=== PATIENT | female | born 1935 | race Caucasian/White ===

== ENCOUNTER 2020-01-25 13:18 | IRF | payer MEDICARE, OTHER, SELFPAY ==
[2020-01-25 13:04] VITALS: BMI 21.2
--- NOTE | 2020-01-25 13:17 | ADMGEN ---
This patient, Yani Mora, was admitted to [facility] Room 226-02. Patient/family oriented to hospital policies and general routines including ID bracelet, bed and alarms, visiting hours, pain management, procedures, bathroom and other care routines, personal items, smoking policy, room service/diet, and visiting hours. Information on how to activate the Rapid Response Team has been discussed. Patient/Family are encouraged to report perceived risks to care and to ask questions if they do not understand what they are told or what they should do.
[2020-01-25 14:00] VITALS: BP 174/68; PULSE 97; RESP 24; TEMP 36.7; O2SAT 98
[2020-01-25] MEDS: POTASSIUM CHLORIDE 10 MEQ TABLET.ER PO (17:39)
[2020-01-25] MEDS: oxyCODONE/ACETAMINOPHEN (*CRX) 5-325 MG TABLET 1 TABLET PO (20:07)
[2020-01-25 21:00] VITALS: PULSE 97; RESP 24; O2SAT 98
[2020-01-25 22:00] VITALS: BP 136/60; PULSE 97; RESP 18; TEMP 36.8; O2SAT 92
[2020-01-26] MEDS: oxyCODONE/ACETAMINOPHEN (*CRX) 5-325 MG TABLET 1 TABLET PO ×4 (02:25→20:26)
[2020-01-26 04:55] LABS: Basophils Absolute Auto 0.1 K/mm3 (0.0-0.1); Basophils Percent Auto 0.4 % (0.2-1.2); Eosinophils Absolute Auto 0.5 K/mm3 (0-0.3); Eosinophils Percent Auto 2.7 % (0-4.4); Hematocrit 31.1 % (37.0-47.0); Immature Granulocyte Absolute 0.11 K/mm3 (0.00-0.031); Immature Granulocyte Percent A 0.7 % (0-0.5); Lymphocytes Absolute Auto 4.77 K/mm3 (0.9-3.2); Mean Corpuscular HGB Conc 32.2 g/dl (32-36); Mean Corpuscular Hemoglobin 30.7 pg (26-34); Mean Corpuscular Volume 95.4 fl (80-100); Mean Platelet Volume 11.4 fl (7.4-10.4); Monocytes Absolute Auto 1.9 K/mm3 (0.1-0.6); Monocytes Percent Auto 11.4 % (2.6-8.5); Neutrophils Absolute Auto 9.2 K/mm3 (1.3-6.7); Neutrophils Percent Auto 55.8 % (45.5-73.1); Platelet Count Result 236 k/mm3 (150-375); Red Blood Count 3.26 M/mm3 (4.2-5.4); Red Cell Distribution Width 14.6 % (11.5-14.5); White Blood Count 16.4 K/mm3 (4.5-10.0)
[2020-01-26 05:10] LABS: Anion Gap 7 mmol/L (8-16); Blood Urea Nitrogen 41 mg/dL (7-17); Calcium 10.7 mg/dL (8.4-10.2); Carbon Dioxide 18 mmol/L (22-30); Chloride 115 mmol/L (98-107); Estimated Glomerular Filt Rate 29; Glucose 115 mg/dL (65-105); Potassium 4.3 mmol/L (3.4-5.0); Sodium 140 mmol/L (137-145)
[2020-01-26 06:00] VITALS: BP 153/62; PULSE 81; RESP 17; TEMP 36.3; O2SAT 100
[2020-01-26 10:18] VITALS: PULSE 81
[2020-01-26] MEDS: DOCUSATE SODIUM 100 MG CAPSULE PO (10:18)
[2020-01-26] MEDS: POTASSIUM CHLORIDE 10 MEQ TABLET.ER PO ×2 (10:18→17:11)
[2020-01-26] MEDS: METOPROLOL SUCCINATE EXT REL 25 MG TABCR PO (10:18)
[2020-01-26] MEDS: CEPHALEXIN 500 MG CAPSULE PO (10:18)
[2020-01-26 12:14] VITALS: BMI 21.2
--- NOTE | 2020-01-26 12:29 | WPDREHABHP ---
H&P: HPI History of Present Illness Date/Time: 01/26/20 12:29 Chief complaint: Pelvic fractures Narrative: Yani Mora is a 84 year old female HISTORY OF PRESENT ILLNESS: The patient's primary rehab impairment category is Orthopedic lower extremity fracture The etiologic diagnosis is mildly displaced fractures of the right superior and inferior pubic rami, and minimally displaced left superior pubic ramus fracture. I saw this patient [id number] on January 26, 2020 at 12 noon The patient is a 84 years old right-handed female with a past medical history of significant coronary artery disease status post CABG, frequent UTI, and cerebrovascular accident in 2018 presented to [facility] on January 22, 2020 after a fall in her home resulting in an injury and immobility . The patient denies hitting her head or loss of consciousness. Upon presentation, the patient was hypertensive with blood pressure of 175/106 and pulse was tachycardiac at 1:10 a.m.. Lab results were significant for WBCs 22.8, BUN 36, creatinine 1.5, calcium 10.9, and glucose 174. Right hip x-ray revealed mildly displaced fractures of the right superior and inferior pubic rami and a minimally displaced left superior pubic ramus. Head CT scan revealed no acute intracranial abnormalities with chronic microangiopathy and volume loss. Wrist x-ray revealed a healed distal radius fracture with slight impaction and angular deformity, chronic nonunion of the ulnar styloid, and significant osteoarthritis changes of the left wrist joint. Orthopedic surgery was consulted and recommended non operative management at this time. Weightbearing order to be as tolerated. Urine culture revealed gram-negative bacilli. The patient has frequent and chronic UTIs for which she will continue her home medication of Keflex. The Liao catheter was discontinued on 01/24 2020. The patient has experienced medical complications of leukocytosis, hypercalcemia, hypertension, and UTI. The patient is awake alert oriented x3 she is hemodynamically stable. Physician did not want the patient on any further DVT prophylaxis after being on Lovenox while in the hospital. The patient will follow up in [address] Simon for x-rays. COVID: patient has not traveled outside the [place] or head contact with someone was ill that has traveled outside the [place] in the past 21 days. The patient has not traveled to an area of the [place] there is experiencing known transmission of the Coronavirus and has not had close personal contact with anyone that has. The patient does not have a fever. The patient is not experiencing lower respiratory illness symptoms. Therapy was initiated at the acute care facility and the patient transferred to us from [facility] on January 25, 2020 FALLS OR SURGERIES: The patient has had [no] major surgeries in the 100 days prior to admission. the patient has had 2 falls in the past year, the patient has had 1 fall with injury in the past year. PAST MEDICAL HISTORY: Coronary artery disease, frequent UTIs, CVA in 2018, pneumonia, chronic kidney disease, and osteoarthritis PAST SURGICAL HISTORY: status post CABG times for about 6 to 7 years ago SOCIAL HISTORY: the patient lives alone in a 2 level home with 3 to 4 stairs to enter. The patient does not have a need to use the 2nd floor of her home as she has the bedroom, bathroom, and laundry on the main floor. She has a lot of family support including her granddaughter living next door. The family is available to stay with her in her home after rehab for any assistance needed. The patient was using a 2 wheeled walker for ambulation and a wheelchair for doctor's appointments prior to this fall. Patient is retired, and denies tobacco, alcohol, and illicit drug use. FAMILY HISTORY: First degree relative significant history of heart disease and hypertension. PRIOR LEVEL OF FUNCTION: Eating wa
[2020-01-26 14:00] VITALS: BP 141/97; PULSE 87; RESP 20; TEMP 36.8; O2SAT 99
--- NOTE | 2020-01-26 14:55 | RPD ---
INDIVIDUALIZED PLAN OF CARE FOR Yani Mora Brief Synthesis of Pre-Admission Screen, Post-Admission Evaluation and Therapy Evaluations: The patient presents to rehab with Mildly displaced fractures of the right superior and inferior pubic rami and Minimally displaced left superior pubic ramus fracture. Comorbidities include Coronary artery disease, frequent UTI, history of CVA (2018), chronic kidney disease, osteoarthritis, leukocytosis, hypercalcemia, and hypertension. The patient?s needs will be best met in an intensive program vs. at a lower level of care. The patient requires physician services for medical oversight, and management of post fracture complications in setting of present comorbidities, and pain management. She will be followed at least three times a week by the rehabilitation physician. Orthopedics may see the patient at the frequency of their discretion. Labs will be drawn to monitor blood counts and electrolytes periodically. The patient requires nursing services for DVT prophylactics, infection protection, medication management and education, pressure relief, and wound care. Deficits include: ADLs, Balance, Endurance, Family Training/Education, Mobility, Pain Management, ROM, Safety, Strength, and Transfers. Remote Control Mirror Installer/Case Management for: Discharge Planning and Patient/Family Counseling Physical Therapy: 5 days per week for 90 minutes. Treatments may include: Therapeutic Exercise, Gait Training, Neuromuscular Re-education, Transfer Training, Community Reintegration, Bed Mobility, Patient/Family Education, Wheelchair Mobility Group Therapy/Concurrent Therapy Rationales: -Improve attention span during functional activities in a distracted environment. -Enhance problem solving and/or adequate judgment skills during functional activities in a distracted environment. -Promote increased safety awareness in a distracted environment to reduce fall risk with functional tasks, transfers, and ambulation to allow a more safe, self-sufficient return to the home environment. -Improve dynamic balance skills to promote safety and independence with functional activities in a distracted environment for maximum gain. Occupational Therapy: 5 days per week for 90 minutes. Treatments may include: Therapeutic Exercise, Therapeutic Activity, Cognitive Training, Self-Care Transfer Training, Community Reintegration, Home Management, Patient/Family Education, Wheelchair Mobility Training, Energy Conservation Training Group Therapy/Concurrent Therapy Rationales: -Allow therapist to observe and teach generalization and carry-over of skills learned in individual therapy. -Enhance problem solving and sequencing skills during therapeutic activities in a distracted environment. -Promote increased safety awareness in a realistic setting to reduce fall risk with functional tasks due to visual and verbal distractions. -Increase functional level with ADLs, ADL transfers and use of adaptive equipment through therapeutic activities with others while promoting safety to allow a more safe, self-sufficient return home. Group Therapy/Concurrent Therapy - Rationale: -Allow therapist to observe and teach generalization and carry-over of skills learned in individual therapy. -Improve comprehension skills with complex or abstract ideas through discussion in a realistic setting. -Enhance problem solving skills with complex issues during activities in a distracted environment. -Promote increased memory skills and concentration in a distracted environment for a safe transition home. -Improve attention and focus with language/communication skills in a realistic and supportive therapeutic setting. -Allow for practice of expression of basic needs and ideas through functional activities with others. Medical Prognosis: Good Anticipated Length of Stay: 12 days Rehab Goals: Eating Goal: 06-Independent Oral Hygiene Goal: 06-Independent Toileting Hygiene Goal: 06-Independent Show
[2020-01-27] MEDS: oxyCODONE/ACETAMINOPHEN (*CRX) 5-325 MG TABLET 1 TABLET PO ×3 (02:48→21:54)
[2020-01-27 05:29] VITALS: BP 146/63; PULSE 80; RESP 20; TEMP 36.4; O2SAT 99
[2020-01-27 08:00] VITALS: PULSE 80; RESP 20; O2SAT 99
[2020-01-27 10:08] VITALS: PULSE 80
[2020-01-27] MEDS: CEPHALEXIN 500 MG CAPSULE PO (10:08)
[2020-01-27] MEDS: METOPROLOL SUCCINATE EXT REL 25 MG TABCR PO (10:08)
[2020-01-27] MEDS: DOCUSATE SODIUM 100 MG CAPSULE PO (10:08)
[2020-01-27] MEDS: POTASSIUM CHLORIDE 10 MEQ TABLET.ER PO ×2 (10:08→17:33)
--- NOTE | 2020-01-27 12:44 | WPDNEURORHBP ---
Subjective Date/time seen: 01/27/20 12:44 84 years old lady with displaced fracture of the right superior inferior pubic rami and minimally displaced left superior pubic ramus fracture in addition to the history of coronary artery disease frequent UTIs cerebrovascular accident in 2018 chronic kidney disease and osteoarthritis has been involving the physical therapy and occupational therapy and making slow but gradual improvement Review of Systems Review of Systems: All systems reviewed & are unremarkable except as noted in HPI and below Functional Status Ambulation Ability Ambulation Assistive Devices: Parallel Bars Transfers Ability Ability to Transfer In/Out of Chair: Moderate Assistance X 1 Exam Narrative: Exam Narrative: on examination she is awake alert cooperative with speech nor dysphasic no dysarthric not dysphonic the cranial examination is normal heart regular lungs clear abdomen is soft normal bowel sounds neuro unchanged Objective Data Vital Signs Vital Signs: Vital Signs - 24 hr 01/26/20 14:00 01/27/20 05:29 01/27/20 08:00 Temperature 36.8 C 36.4 C Pulse Rate 87 80 80 Respiratory Rate 20 20 20 Blood Pressure 141/97 H 146/63 H Pulse Oximetry 99 99 99 01/27/20 10:08 Temperature Pulse Rate 80 Respiratory Rate Blood Pressure Pulse Oximetry Intake/Output Intake/Output: Intake & Output 01/24/20 01/25/20 01/26/20 01/27/20 23:59 23:59 23:59 23:59 Intake Total 480 240 Balance 480 240 Meds/Results Medications: Active Medications Generic Name Dose Route Start Last Admin Trade Name Freq PRN Reason Stop Dose Admin Acetaminophen 650 mg 01/25/20 13:23 Acetaminophen 325 Mg Tablet PO Q6H PRN Pain (Scale Score 1-3) Hydrocodone Bitart/Acetaminophen 1 tab 01/25/20 13:12 Hydrocodone/Acetaminophen (*Crx) 10-325 Mg Tablet PO Q6H PRN Pain (Scale Score 4-6) Cephalexin HCl 500 mg 01/26/20 09:00 01/27/20 10:08 Cephalexin 500 Mg Capsule PO 500 mg DAILY CHELO Administration Clonidine HCl 0.1 mg 01/25/20 15:48 Clonidine Hcl 0.1 Mg Tablet PO Q6H PRN Blood Pressure - High Docusate Sodium 100 mg 01/26/20 09:00 01/27/20 10:08 Docusate Sodium 100 Mg Capsule PO 100 mg DAILY CHELO Administration Melatonin 5 mg 01/25/20 13:12 Melatonin 5 Mg Tablet PO HS PRN Insomnia Metoprolol Succinate 25 mg 01/26/20 09:00 01/27/20 10:08 Metoprolol Succinate Ext Rel 25 Mg Tabcr PO 25 mg DAILY CHELO Administration Oxycodone/Acetaminophen 1 tablet 01/25/20 13:12 01/27/20 10:43 Oxycodone/Acetaminophen (*Crx) 5-325 Mg Tablet PO 1 tablet Q4H PRN Administration Pain (Scale Score 7-10) Potassium Chloride 10 meq 01/25/20 17:00 01/27/20 10:08 Potassium Chloride 10 Meq Tablet.Er PO 10 meq BID CHELO Administration Progress Note: A&P Assessment and Plan (1) Bilateral pubic rami fractures: Code(s): S32.591A - Other specified fracture of right pubis, initial encounter for closed fracture; S32.592A - Other specified fracture of left pubis, initial encounter for closed fracture Status: Acute Additional Plan stable continue the treatment as such
[2020-01-27 14:00] VITALS: BP 171/72; PULSE 90; RESP 20; TEMP 36.7; O2SAT 97
[2020-01-27 20:35] VITALS: BP 153/68; PULSE 102; RESP 22; TEMP 36.9; O2SAT 100
[2020-01-28] MEDS: oxyCODONE/ACETAMINOPHEN (*CRX) 5-325 MG TABLET 1 TABLET PO ×3 (02:01→18:18)
[2020-01-28 04:53] VITALS: BP 150/69; PULSE 87; RESP 18; TEMP 36.1; O2SAT 98
[2020-01-28 08:55] VITALS: PULSE 84
[2020-01-28] MEDS: DOCUSATE SODIUM 100 MG CAPSULE PO (08:55)
[2020-01-28] MEDS: CEPHALEXIN 500 MG CAPSULE PO (08:55)
[2020-01-28] MEDS: METOPROLOL SUCCINATE EXT REL 25 MG TABCR PO (08:55)
[2020-01-28] MEDS: POTASSIUM CHLORIDE 10 MEQ TABLET.ER PO ×2 (08:55→17:04)
[2020-01-28 14:00] VITALS: BP 142/62; PULSE 91; RESP 16; TEMP 36.2; O2SAT 95
[2020-01-28 20:00] VITALS: PULSE 94; RESP 18; O2SAT 97
[2020-01-28] MEDS: HYDROcodone/acetaminophen (*CRX) 10-325 MG TABLET 1 TAB PO (21:24)
[2020-01-28 22:00] VITALS: BP 143/67; PULSE 94; RESP 18; TEMP 37.2; O2SAT 97
[2020-01-29] MEDS: oxyCODONE/ACETAMINOPHEN (*CRX) 5-325 MG TABLET 1 TABLET PO ×2 (05:29→11:16)
[2020-01-29 06:00] VITALS: BP 145/62; PULSE 79; RESP 15; TEMP 36.4; O2SAT 100
[2020-01-29 08:32] VITALS: PULSE 88
[2020-01-29] MEDS: METOPROLOL SUCCINATE EXT REL 25 MG TABCR PO (08:32)
[2020-01-29] MEDS: POTASSIUM CHLORIDE 10 MEQ TABLET.ER PO ×2 (08:32→17:11)
[2020-01-29] MEDS: DOCUSATE SODIUM 100 MG CAPSULE PO (08:32)
[2020-01-29] MEDS: CEPHALEXIN 500 MG CAPSULE PO (08:32)
--- NOTE | 2020-01-29 10:20 | WPDNEURORHBP ---
Subjective Date/time seen: 01/29/20 10:20 84 years old lady with displaced fracture of the right superior inferior pubic rami and minimally displaced left superior pubic ramus fracture in addition to the history of coronary artery disease chronic renal disease osteoarthritis and frequent UTIs her initial CBC has revealed WBC of 16.4 I will repeat the CBC today Functional Status Ambulation Ability Ambulation Assistive Devices: Parallel Bars Transfers Ability Ability to Transfer In/Out of Chair: Moderate Assistance X 1 Exam Narrative: Exam Narrative: on examination today she is awake alert cooperative in no obvious acute distress heart regular rate lungs clear without rhonchi or crepitation neuro unchanged Objective Data Vital Signs Vital Signs: Vital Signs - 24 hr 01/28/20 14:00 01/28/20 20:00 01/28/20 22:00 Temperature 36.2 C L 37.2 C Pulse Rate 91 94 94 Respiratory Rate 16 18 18 Blood Pressure 142/62 H 143/67 H Pulse Oximetry 95 97 97 01/29/20 06:00 01/29/20 08:32 Temperature 36.4 C Pulse Rate 79 88 Respiratory Rate 15 Blood Pressure 145/62 H Pulse Oximetry 100 Intake/Output Intake/Output: Intake & Output 01/26/20 01/27/20 01/28/20 01/29/20 23:59 23:59 23:59 23:59 Intake Total 480 720 330 240 Balance 480 720 330 240 Meds/Results Medications: Active Medications Generic Name Dose Route Start Last Admin Trade Name Freq PRN Reason Stop Dose Admin Acetaminophen 650 mg 01/25/20 13:23 Acetaminophen 325 Mg Tablet PO Q6H PRN Pain (Scale Score 1-3) Hydrocodone Bitart/Acetaminophen 1 tab 01/25/20 13:12 01/28/20 21:24 Hydrocodone/Acetaminophen (*Crx) 10-325 Mg Tablet PO 1 tab Q6H PRN Administration Pain (Scale Score 4-6) Cephalexin HCl 500 mg 01/26/20 09:00 01/29/20 08:32 Cephalexin 500 Mg Capsule PO 500 mg DAILY CHELO Administration Clonidine HCl 0.1 mg 01/25/20 15:48 Clonidine Hcl 0.1 Mg Tablet PO Q6H PRN Blood Pressure - High Docusate Sodium 100 mg 01/26/20 09:00 01/29/20 08:32 Docusate Sodium 100 Mg Capsule PO 100 mg DAILY CHELO Administration Melatonin 5 mg 01/25/20 13:12 Melatonin 5 Mg Tablet PO HS PRN Insomnia Metoprolol Succinate 25 mg 01/26/20 09:00 01/29/20 08:32 Metoprolol Succinate Ext Rel 25 Mg Tabcr PO 25 mg DAILY CHELO Administration Oxycodone/Acetaminophen 1 tablet 01/25/20 13:12 01/29/20 05:29 Oxycodone/Acetaminophen (*Crx) 5-325 Mg Tablet PO 1 tablet Q4H PRN Administration Pain (Scale Score 7-10) Potassium Chloride 10 meq 01/25/20 17:00 01/29/20 08:32 Potassium Chloride 10 Meq Tablet.Er PO 10 meq BID CHELO Administration Progress Note: A&P Assessment and Plan (1) Bilateral pubic rami fractures: Code(s): S32.591A - Other specified fracture of right pubis, initial encounter for closed fracture; S32.592A - Other specified fracture of left pubis, initial encounter for closed fracture Status: Acute Additional Plan continue the therapy as such and repeat CBC
[2020-01-29] MEDS: polyethylene glycoL 3350 17 GM POWD.PACK PO (11:21)
[2020-01-29 14:00] VITALS: BP 149/81; PULSE 100; RESP 18; TEMP 36.8; O2SAT 92
[2020-01-29 15:11] LABS: Basophils Absolute Auto 0.1 K/mm3 (0.0-0.1); Basophils Percent Auto 0.4 % (0.2-1.2); Eosinophils Absolute Auto 0.3 K/mm3 (0-0.3); Eosinophils Percent Auto 1.8 % (0-4.4); Hematocrit 35.2 % (37.0-47.0); Hemoglobin 11.1 g/dL (12.0-15.0); Immature Granulocyte Absolute 0.07 K/mm3 (0.00-0.031); Immature Granulocyte Percent A 0.4 % (0-0.5); Lymphocytes Absolute Auto 2.17 K/mm3 (0.9-3.2); Lymphocytes Percent Auto 13.8 % (18.3-44.2); Mean Corpuscular HGB Conc 31.5 g/dl (32-36); Mean Corpuscular Hemoglobin 30.7 pg (26-34); Mean Corpuscular Volume 97.5 fl (80-100); Monocytes Absolute Auto 1.5 K/mm3 (0.1-0.6); Monocytes Percent Auto 9.4 % (2.6-8.5); Neutrophils Absolute Auto 11.6 K/mm3 (1.3-6.7); Neutrophils Percent Auto 74.2 % (45.5-73.1); Platelet Count Result 337 k/mm3 (150-375); Red Blood Count 3.61 M/mm3 (4.2-5.4); Red Cell Distribution Width 14.8 % (11.5-14.5); White Blood Count 15.7 K/mm3 (4.5-10.0)
--- NOTE | 2020-01-29 15:39 | PCPTNOTE ---
Ciera Young PTA completed an inpatient rehab wheelchair evaluation on Yani Mora on 01/29/2020. The patient is unable to safely and independently ambulate household distances due to their current impairments. Their diagnosis is Pelvic fractures and their impairments include decreased strength, decreased endurance, decreased range of motion, decreased balance, lower extremity weakness. Yani's weight bearing status is weight-bearing as tolerated on the bilateral lower legs. The patient demonstrates significant functional mobility limitations that impair their ability to participate in mobility-related activities of daily living (MRADLs), including toileting, feeding, dressing, grooming, and bathing in the customary locations in the home. These limitations cannot be sufficiently resolved by the use of an appropriately fitted cane or walker. It is recommended that the patient utilize a wheelchair for functional mobility within the home in order to facilitate optimal safety, independence and participation in all MRADL's and adequately access their home environment on a regular basis. The patient's home provides adequate access between rooms, maneuvering space, and surfaces to accommodate the recommended wheelchair. The use of a wheelchair for functional mobility is strongly recommended and the patient is receptive to using the wheelchair. The use of this wheelchair will significantly improve the patient's ability to participate in MRADLS and the patient will use it on a regular basis in the home. This will facilitate optimal safety, independence, and participation. The patient has demonstrated sufficient physical and mental capabilities needed to safely propel a manual wheelchair that is provided in the home during a typical day. Recommended Wheelchair Frame: STANDARD Recommended Wheelchair Size: 16 X 16 Recommended Wheelchair Cushion: STANDARD Wheelchair Leg Recommendations: BILATERAL ELEVATING SWING AWAY LEG RESTS - Elevating legrests are recommended because the patient has significant edema of the lower extremities that requires an elevating legrest. - Anti-tippers are recommended due to patient demonstrating increased risk for falls. They would benefit from anti-tippers with added safety and stabilization. Ciera Young PTA 01/29/2020 Evaluating Therapist Date I agree with and certify that the above recommendation is medically necessary. Referring Physician Date I agree with and certify that the above recommendation is medically necessary. Referring Physician Date
--- NOTE | 2020-01-29 17:50 | PC.NURSE ---
Urine sensitivity obtained from [facility], final -growth of ESBL. Called and left message for him to return call, also left copy on his desk
[2020-01-29 20:42] VITALS: BP 150/60; PULSE 103; RESP 12; TEMP 36.8; O2SAT 97
[2020-01-30] MEDS: oxyCODONE/ACETAMINOPHEN (*CRX) 5-325 MG TABLET 1 TABLET PO (02:22)
[2020-01-30 05:55] VITALS: BP 159/69; PULSE 89; RESP 14; TEMP 36.6; O2SAT 97
[2020-01-30 09:38] VITALS: PULSE 89
[2020-01-30] MEDS: DOCUSATE SODIUM 100 MG CAPSULE PO (09:38)
[2020-01-30] MEDS: HYDROcodone/acetaminophen (*CRX) 10-325 MG TABLET 1 TAB PO ×2 (09:38→18:28)
[2020-01-30] MEDS: METOPROLOL SUCCINATE EXT REL 25 MG TABCR PO (09:38)
[2020-01-30] MEDS: CEPHALEXIN 500 MG CAPSULE PO (09:38)
[2020-01-30] MEDS: POTASSIUM CHLORIDE 10 MEQ TABLET.ER PO ×2 (09:38→17:20)
--- NOTE | 2020-01-30 11:21 | WPDNEURORHBP ---
Subjective Date/time seen: 01/30/20 11:21 84 years old lady with displaced fracture of the right superior inferior pubic rami and minimally displaced left superior pubic ramus fracture and also history of coronary artery disease, chronic renal disease, osteoarthritis, and frequent UTIs has been involved the physical therapy and occupational therapy on actively basis her WBC was 15.7 hemoglobin 11.1 electrolytes borderline will repeat the CBC and BMP Review of Systems Review of Systems: All systems reviewed & are unremarkable except as noted in HPI and below Functional Status Ambulation Ability Ambulation Assistive Devices: Parallel Bars Transfers Ability Ability to Transfer In/Out of Chair: Moderate Assistance X 1 Exam Narrative: Exam Narrative: on exam she is awake alert cooperative his speech nor dysphasic no dysarthric no dysphonic neck is supple mucous membranes are moist with no rhinorrhea heart regular with no murmur lungs clear to auscultation no rhonchi or crepitation abdomen is soft nontender normal bowel sounds and neurological examination unchanged Objective Data Vital Signs Vital Signs: Vital Signs - 24 hr 01/29/20 14:00 01/29/20 20:42 01/30/20 05:55 Temperature 36.8 C 36.8 C 36.6 C Pulse Rate 100 103 H 89 Respiratory Rate 18 12 14 Blood Pressure 149/81 H 150/60 H 159/69 H Pulse Oximetry 92 97 97 01/30/20 09:38 Temperature Pulse Rate 89 Respiratory Rate Blood Pressure Pulse Oximetry Intake/Output Intake/Output: Intake & Output 01/27/20 01/28/20 01/29/20 01/30/20 23:59 23:59 23:59 23:59 Intake Total 720 330 600 240 Balance 720 330 600 240 Meds/Results Medications: Active Medications Generic Name Dose Route Start Last Admin Trade Name Freq PRN Reason Stop Dose Admin Acetaminophen 650 mg 01/25/20 13:23 Acetaminophen 325 Mg Tablet PO Q6H PRN Pain (Scale Score 1-3) Hydrocodone Bitart/Acetaminophen 1 tab 01/30/20 09:20 01/30/20 09:38 Hydrocodone/Acetaminophen (*Crx) 10-325 Mg Tablet PO 1 tab Q12HRT CHELO Administration Cephalexin HCl 500 mg 01/26/20 09:00 01/30/20 09:38 Cephalexin 500 Mg Capsule PO 500 mg DAILY CHELO Administration Clonidine HCl 0.1 mg 01/25/20 15:48 Clonidine Hcl 0.1 Mg Tablet PO Q6H PRN Blood Pressure - High Docusate Sodium 100 mg 01/26/20 09:00 01/30/20 09:38 Docusate Sodium 100 Mg Capsule PO 100 mg DAILY CHELO Administration Melatonin 5 mg 01/25/20 13:12 Melatonin 5 Mg Tablet PO HS PRN Insomnia Metoprolol Succinate 25 mg 01/26/20 09:00 01/30/20 09:38 Metoprolol Succinate Ext Rel 25 Mg Tabcr PO 25 mg DAILY CHELO Administration Oxycodone/Acetaminophen 1 tablet 01/25/20 13:12 01/30/20 02:22 Oxycodone/Acetaminophen (*Crx) 5-325 Mg Tablet PO 1 tablet Q4H PRN Administration Pain (Scale Score 7-10) Polyethylene Glycol 17 gm 01/29/20 11:02 01/29/20 11:21 Polyethylene Glycol 3350 17 Gm Powd.Pack PO 17 gm DAILY PRN Administration Constipation Potassium Chloride 10 meq 01/25/20 17:00 01/30/20 09:38 Potassium Chloride 10 Meq Tablet.Er PO 10 meq BID CHELO Administration Labs Labs: Laboratory Results - last 24 hr 01/29/20 15:05 WBC 15.7 H RBC 3.61 L Hgb 11.1 L Hct 35.2 L MCV 97.5 MCH 30.7 MCHC 31.5 L RDW 14.8 H Plt Count 337 MPV 11.0 H Immature Gran % (Auto) 0.4 Neut % (Auto) 74.2 H Lymph % (Auto) 13.8 L Grady % (Auto) 9.4 H Eos % (Auto) 1.8 Baso % (Auto) 0.4 Lymph # (Auto) 2.17 Grady # (Auto) 1.5 H Eos # (Auto) 0.3 Baso # (Auto) 0.1 Abs Immat Gran (auto) 0.07 H Absolute Neuts (auto) 11.6 H Absolute Nucleated RBC 0.0 Nucleated RBC % 0.0 Progress Note: A&P Assessment and Plan (1) Bilateral pubic rami fractures: Code(s): S32.591A - Other specified fracture of right pubis, initial encounter for closed fracture; S32.592A - Other specified fracture of left pubis, initial encounter for closed
[2020-01-30 12:39] LABS: Basophils Absolute Auto 0.1 K/mm3 (0.0-0.1); Basophils Percent Auto 0.4 % (0.2-1.2); Eosinophils Absolute Auto 0.3 K/mm3 (0-0.3); Eosinophils Percent Auto 2.1 % (0-4.4); Hematocrit 33.6 % (37.0-47.0); Hemoglobin 10.7 g/dL (12.0-15.0); Immature Granulocyte Absolute 0.08 K/mm3 (0.00-0.031); Immature Granulocyte Percent A 0.5 % (0-0.5); Lymphocytes Absolute Auto 3.24 K/mm3 (0.9-3.2); Lymphocytes Percent Auto 20.6 % (18.3-44.2); Mean Corpuscular HGB Conc 31.8 g/dl (32-36); Mean Corpuscular Hemoglobin 31.1 pg (26-34); Mean Corpuscular Volume 97.7 fl (80-100); Mean Platelet Volume 11.2 fl (7.4-10.4); Monocytes Absolute Auto 1.3 K/mm3 (0.1-0.6); Monocytes Percent Auto 8.5 % (2.6-8.5); Neutrophils Absolute Auto 10.7 K/mm3 (1.3-6.7); Neutrophils Percent Auto 67.9 % (45.5-73.1); Platelet Count Result 356 k/mm3 (150-375); Red Blood Count 3.44 M/mm3 (4.2-5.4); Red Cell Distribution Width 14.8 % (11.5-14.5); White Blood Count 15.7 K/mm3 (4.5-10.0)
[2020-01-30 12:52] LABS: Anion Gap 12 mmol/L (8-16); Blood Urea Nitrogen 50 mg/dL (7-17); Calcium 10.2 mg/dL (8.4-10.2); Carbon Dioxide 14 mmol/L (22-30); Chloride 116 mmol/L (98-107); Estimated Glomerular Filt Rate 27; Glucose 146 mg/dL (65-105); Potassium 3.8 mmol/L (3.4-5.0); Sodium 142 mmol/L (137-145)
[2020-01-30 14:00] VITALS: BP 150/76; PULSE 90; RESP 18; TEMP 36.6; O2SAT 100
[2020-01-30 22:00] VITALS: BP 156/55; PULSE 95; RESP 20; TEMP 37.1; O2SAT 99
[2020-01-30] MEDS: ACETAMINOPHEN 325 MG TABLET 650 MG PO (22:38)
[2020-01-31] MEDS: oxyCODONE/ACETAMINOPHEN (*CRX) 5-325 MG TABLET 1 TABLET PO ×2 (02:40→13:14)
[2020-01-31 06:00] VITALS: BP 151/71; PULSE 83; RESP 20; TEMP 36.3; O2SAT 98
[2020-01-31] MEDS: HYDROcodone/acetaminophen (*CRX) 10-325 MG TABLET 1 TAB PO ×2 (06:27→17:32)
[2020-01-31 08:34] VITALS: PULSE 83
[2020-01-31] MEDS: DOCUSATE SODIUM 100 MG CAPSULE PO (08:34)
[2020-01-31] MEDS: POTASSIUM CHLORIDE 10 MEQ TABLET.ER PO ×2 (08:34→17:32)
[2020-01-31] MEDS: METOPROLOL SUCCINATE EXT REL 25 MG TABCR PO (08:34)
[2020-01-31] MEDS: CEPHALEXIN 500 MG CAPSULE PO (08:35)
--- NOTE | 2020-01-31 12:01 | PCDIET ---
Nutrition Follow-Up Complete: Nutrition Diagnosis: Suboptimal oral intake related to decreased appetite as evidenced by patient statements, meal intake of 5%. Nutrition Goal: Patient to consume 75% of meals and/or supplements or greater Goal in progress. Patient reports appetite remains poor, but is consistently taking Ensure Clear TID for total of 720kcal and 24g protein. Did not care for vanilla flavor of Frozen Nutritional Treat (sent 1x daily for 300kcal and 9g protein) but is willing to try chocolate. Small, frequent meals encouraged. Last recorded weight is 47.7 kg. Recommend obtaining new weight. Bowel Motility: Last documented BM on 01/28/20. Patient on Colace and Miralax. Labs Reviewed: Hgb (10.7), Hct (33.6), Glu (146), BUN (50), Cr (1.8), Cl (116) Meds Noted: [place], Keflex, Colace, Miralax, KCl Additional Notes: No documented skin breakdown. Will continue to monitor with same goal. Nutrition Monitoring and Evaluation: Follow up in 5 days.
--- NOTE | 2020-01-31 12:13 | WPDNEURORHBP ---
Subjective Date/time seen: 01/31/20 12:13 84 years old lady admitted to the rehab floor with displaced fracture of the right superior inferior pubic rami and minimally displaced left superior pubic ramus fracture in addition to the history of multiple comorbid conditions she is involved in the physical therapy and occupational therapy and has been stable and has no obvious specific complaints today Review of Systems Review of Systems: All systems reviewed & are unremarkable except as noted in HPI and below Functional Status Ambulation Ability Ambulation Assistive Devices: Parallel Bars Transfers Ability Ability to Transfer In/Out of Chair: Moderate Assistance X 1 Exam Narrative: Exam Narrative: she is awake alert cooperative, speech not dysphasic not dysarthric ,neck supple, heart regular, lungs clear with no crepitations or rhonchi, abdomen soft nontender , skin clear, neuro unchanged Objective Data Vital Signs Vital Signs: Vital Signs - 24 hr 01/30/20 14:00 01/30/20 22:00 01/31/20 06:00 Temperature 36.6 C 37.1 C 36.3 C L Pulse Rate 90 95 83 Respiratory Rate 18 20 20 Blood Pressure 150/76 H 156/55 H 151/71 H Pulse Oximetry 100 99 98 01/31/20 08:34 Temperature Pulse Rate 83 Respiratory Rate Blood Pressure Pulse Oximetry Intake/Output Intake/Output: Intake & Output 01/28/20 01/29/20 01/30/20 01/31/20 23:59 23:59 23:59 23:59 Intake Total 330 600 600 240 Balance 330 600 600 240 Meds/Results Medications: Active Medications Generic Name Dose Route Start Last Admin Trade Name Freq PRN Reason Stop Dose Admin Acetaminophen 650 mg 01/25/20 13:23 01/30/20 22:38 Acetaminophen 325 Mg Tablet PO 650 mg Q6H PRN Administration Pain (Scale Score 1-3) Hydrocodone Bitart/Acetaminophen 1 tab 01/30/20 18:00 01/31/20 06:27 Hydrocodone/Acetaminophen (*Crx) 10-325 Mg Tablet PO 1 tab Q12H CHELO Administration Cephalexin HCl 500 mg 01/26/20 09:00 01/31/20 08:35 Cephalexin 500 Mg Capsule PO 500 mg DAILY CHELO Administration Clonidine HCl 0.1 mg 01/25/20 15:48 Clonidine Hcl 0.1 Mg Tablet PO Q6H PRN Blood Pressure - High Docusate Sodium 100 mg 01/26/20 09:00 01/31/20 08:34 Docusate Sodium 100 Mg Capsule PO 100 mg DAILY CHELO Administration Melatonin 5 mg 01/25/20 13:12 Melatonin 5 Mg Tablet PO HS PRN Insomnia Metoprolol Succinate 25 mg 01/26/20 09:00 01/31/20 08:34 Metoprolol Succinate Ext Rel 25 Mg Tabcr PO 25 mg DAILY CHELO Administration Oxycodone/Acetaminophen 1 tablet 01/25/20 13:12 01/31/20 02:40 Oxycodone/Acetaminophen (*Crx) 5-325 Mg Tablet PO 1 tablet Q4H PRN Administration Pain (Scale Score 7-10) Polyethylene Glycol 17 gm 01/29/20 11:02 01/29/20 11:21 Polyethylene Glycol 3350 17 Gm Powd.Pack PO 17 gm DAILY PRN Administration Constipation Potassium Chloride 10 meq 01/25/20 17:00 01/31/20 08:34 Potassium Chloride 10 Meq Tablet.Er PO 10 meq BID CHELO Administration Labs Labs: Laboratory Results - last 24 hr 01/30/20 01/30/20 12:23 12:23 WBC 15.7 H RBC 3.44 L Hgb 10.7 L Hct 33.6 L MCV 97.7 MCH 31.1 MCHC 31.8 L RDW 14.8 H Plt Count 356 MPV 11.2 H Immature Gran % (Auto) 0.5 Neut % (Auto) 67.9 Lymph % (Auto) 20.6 [place] % (Auto) 8.5 Eos % (Auto) 2.1 Baso % (Auto) 0.4 Lymph # (Auto) 3.24 H [place] # (Auto) 1.3 H Eos # (Auto) 0.3 Baso # (Auto) 0.1 Abs Immat Gran (auto) 0.08 H Absolute Neuts (auto) 10.7 H Absolute Nucleated RBC 0.0 Nucleated RBC % 0.0 Sodium 142 Potassium 3.8 Chloride 116 H Carbon Dioxide 14 L Anion Gap 12 BUN 50 H Creatinine 1.80 H Estim Creat Clear Calc Not Reportable Estimated GFR 27 L Glucose 146 H Calcium 10.2 Progress Note: A&P Assessment and Plan (1) Bilateral pubic rami fractures: Code(s): S32.591A - Other specified fracture of right pubis, initial en
[2020-01-31 14:00] VITALS: BP 161/68; PULSE 88; RESP 16; TEMP 36.6; O2SAT 94
--- NOTE | 2020-01-31 14:48 | PC.NURSE ---
nursing staff called this internal communications writer to room. pt oxygen saturation was noted at 64%. aide tried to get a reading on a different digit and was noted at 77% RA. Pt placed on oxygen at 3L per nasal cannula and SPO2 noted to be 94%. Dr Mcfadden updated and wanted oxygen to continue as needed. will continue to monitor.
[2020-01-31 20:15] VITALS: O2SAT 99
[2020-01-31 22:00] VITALS: BP 152/61; PULSE 89; RESP 19; TEMP 36.4; O2SAT 99
[2020-02-01] MEDS: oxyCODONE/ACETAMINOPHEN (*CRX) 5-325 MG TABLET 1 TABLET PO (00:47)
[2020-02-01] MEDS: HYDROcodone/acetaminophen (*CRX) 10-325 MG TABLET 1 TAB PO ×2 (05:59→18:04)
[2020-02-01 06:00] VITALS: BP 157/78; PULSE 82; RESP 17; TEMP 36.4; O2SAT 100
[2020-02-01 08:00] VITALS: PULSE 82; RESP 17; O2SAT 100
[2020-02-01 08:44] VITALS: PULSE 82
[2020-02-01] MEDS: METOPROLOL SUCCINATE EXT REL 25 MG TABCR PO (08:44)
[2020-02-01] MEDS: DOCUSATE SODIUM 100 MG CAPSULE PO (08:44)
[2020-02-01] MEDS: CEPHALEXIN 500 MG CAPSULE PO (08:44)
[2020-02-01] MEDS: POTASSIUM CHLORIDE 10 MEQ TABLET.ER PO ×2 (08:44→18:04)
[2020-02-01 14:00] VITALS: BP 158/54; PULSE 96; RESP 20; TEMP 36.8; O2SAT 100
[2020-02-01] MEDS: ACETAMINOPHEN 325 MG TABLET 650 MG PO (23:21)
[2020-02-02 04:54] LABS: Basophils Absolute Auto 0.1 K/mm3 (0.0-0.1); Basophils Percent Auto 0.5 % (0.2-1.2); Eosinophils Absolute Auto 0.6 K/mm3 (0-0.3); Eosinophils Percent Auto 4.2 % (0-4.4); Hemoglobin 10.2 g/dL (12.0-15.0); Immature Granulocyte Absolute 0.07 K/mm3 (0.00-0.031); Immature Granulocyte Percent A 0.5 % (0-0.5); Lymphocytes Absolute Auto 4.33 K/mm3 (0.9-3.2); Lymphocytes Percent Auto 29.6 % (18.3-44.2); Mean Corpuscular HGB Conc 31.9 g/dl (32-36); Mean Corpuscular Hemoglobin 30.7 pg (26-34); Mean Corpuscular Volume 96.4 fl (80-100); Mean Platelet Volume 11.1 fl (7.4-10.4); Monocytes Absolute Auto 1.2 K/mm3 (0.1-0.6); Monocytes Percent Auto 8.3 % (2.6-8.5); Neutrophils Absolute Auto 8.3 K/mm3 (1.3-6.7); Neutrophils Percent Auto 56.9 % (45.5-73.1); Platelet Count Result 401 k/mm3 (150-375); Red Blood Count 3.32 M/mm3 (4.2-5.4); Red Cell Distribution Width 14.6 % (11.5-14.5); White Blood Count 14.6 K/mm3 (4.5-10.0)
[2020-02-02 05:10] LABS: Anion Gap 12 mmol/L (8-16); Blood Urea Nitrogen 54 mg/dL (7-17); Calcium 9.7 mg/dL (8.4-10.2); Carbon Dioxide 14 mmol/L (22-30); Chloride 117 mmol/L (98-107); Estimated Glomerular Filt Rate 24; Glucose 112 mg/dL (65-105); Potassium 4.3 mmol/L (3.4-5.0); Sodium 143 mmol/L (137-145)
[2020-02-02] MEDS: HYDROcodone/acetaminophen (*CRX) 10-325 MG TABLET 1 TAB PO ×2 (05:14→17:57)
[2020-02-02 05:56] VITALS: BP 165/72; PULSE 85; RESP 20; TEMP 36.1; O2SAT 98
[2020-02-02 07:12] VITALS: BP 165/72; PULSE 85; RESP 20; TEMP 36.1; O2SAT 98
[2020-02-02 09:46] VITALS: PULSE 85
[2020-02-02] MEDS: CEPHALEXIN 500 MG CAPSULE PO (09:46)
[2020-02-02] MEDS: METOPROLOL SUCCINATE EXT REL 25 MG TABCR PO (09:46)
[2020-02-02] MEDS: DOCUSATE SODIUM 100 MG CAPSULE PO (09:46)
[2020-02-02] MEDS: POTASSIUM CHLORIDE 10 MEQ TABLET.ER PO ×2 (09:46→17:57)
--- NOTE | 2020-02-02 10:34 | WPDNEURORHBP ---
Subjective Date/time seen: 02/02/20 10:34 84 years old lady admitted to the rehab floor with diagnosis of displaced fracture of the right superior inferior pubic rami with minimal displacement continues to be involvement in the physical therapy and occupational therapy. Generally she is very less communicative but has very appropriate emotional and expressive responses. Review of Systems Review of Systems: All systems reviewed & are unremarkable except as noted in HPI and below Functional Status Ambulation Ability Ambulation Assistive Devices: Parallel Bars Transfers Ability Ability to Transfer In/Out of Chair: Moderate Assistance X 1 Exam Narrative: Exam Narrative: On examination she is awake alert cooperative his speech is not dysphasic or dysarthric. Heart regular with no murmur. Lungs clear with no rhonchi or crepitations. Abdomen is soft nontender flap Alina. Neurologically she is awake alert follows instruction responds appropriately generally looks deconditioned and weak reflexes symmetrical and plantar responses are downgoing. Objective Data Vital Signs Vital Signs: Vital Signs - 24 hr 02/01/20 14:00 02/02/20 05:56 02/02/20 07:12 Temperature 36.8 C 36.1 C L 36.1 C L Pulse Rate 96 85 85 Respiratory Rate 20 20 20 Blood Pressure 158/54 H 165/72 H 165/72 H Pulse Oximetry 100 98 98 02/02/20 09:46 Temperature Pulse Rate 85 Respiratory Rate Blood Pressure Pulse Oximetry Intake/Output Intake/Output: Intake & Output 01/30/20 01/31/20 02/01/20 02/02/20 23:59 23:59 23:59 23:59 Intake Total 600 720 720 100 Balance 600 720 720 100 Meds/Results Medications: Active Medications Generic Name Dose Route Start Last Admin Trade Name Freq PRN Reason Stop Dose Admin Acetaminophen 650 mg 01/25/20 13:23 02/01/20 23:21 Acetaminophen 325 Mg Tablet PO 650 mg Q6H PRN Administration Pain (Scale Score 1-3) Hydrocodone Bitart/Acetaminophen 1 tab 01/30/20 18:00 02/02/20 05:14 Hydrocodone/Acetaminophen (*Crx) 10-325 Mg Tablet PO 1 tab Q12H CHELO Administration Cephalexin HCl 500 mg 01/26/20 09:00 02/02/20 09:46 Cephalexin 500 Mg Capsule PO 500 mg DAILY CHELO Administration Clonidine HCl 0.1 mg 01/25/20 15:48 Clonidine Hcl 0.1 Mg Tablet PO Q6H PRN Blood Pressure - High Docusate Sodium 100 mg 01/26/20 09:00 02/02/20 09:46 Docusate Sodium 100 Mg Capsule PO 100 mg DAILY CHELO Administration Melatonin 5 mg 01/25/20 13:12 Melatonin 5 Mg Tablet PO HS PRN Insomnia Metoprolol Succinate 25 mg 01/26/20 09:00 02/02/20 09:46 Metoprolol Succinate Ext Rel 25 Mg Tabcr PO 25 mg DAILY CHELO Administration Oxycodone/Acetaminophen 1 tablet 01/25/20 13:12 02/01/20 00:47 Oxycodone/Acetaminophen (*Crx) 5-325 Mg Tablet PO 1 tablet Q4H PRN Administration Pain (Scale Score 7-10) Polyethylene Glycol 17 gm 01/29/20 11:02 01/29/20 11:21 Polyethylene Glycol 3350 17 Gm Powd.Pack PO 17 gm DAILY PRN Administration Constipation Potassium Chloride 10 meq 01/25/20 17:00 02/02/20 09:46 Potassium Chloride 10 Meq Tablet.Er PO 10 meq BID CHELO Administration Labs Labs: Laboratory Results - last 24 hr 02/02/20 02/02/20 04:33 04:33 WBC 14.6 H RBC 3.32 L Hgb 10.2 L Hct 32.0 L MCV 96.4 MCH 30.7 MCHC 31.9 L RDW 14.6 H Plt Count 401 H MPV 11.1 H Immature Gran % (Auto) 0.5 Neut % (Auto) 56.9 Lymph % (Auto) 29.6 [place] % (Auto) 8.3 Eos % (Auto) 4.2 Baso % (Auto) 0.5 Lymph # (Auto) 4.33 H [place] # (Auto) 1.2 H Eos # (Auto) 0.6 H Baso # (Auto) 0.1 Abs Immat Gran (auto) 0.07 H Absolute Neuts (auto) 8.3 H Absolute Nucleated RBC 0.0 Nucleated RBC % 0.0 Sodium 143 Potassium 4.3 Chloride 117 H Carbon Dioxide 14 L Anion Gap 12 BUN 54 H Creatinine 2.00 H Estim Creat Clear Calc Not Reportable Estimated GFR 24 L Glucose 112 H Calcium 9.7
[2020-02-02 14:00] VITALS: BP 153/66; PULSE 86; RESP 18; TEMP 36.3; O2SAT 100
--- NOTE | 2020-02-02 17:30 | PC.NURSE ---
Desaturation noted this afternoon when doing scheduled vitals of 77%, patient did not appear in any distress, O2 applied per nasal canula at 2L.
[2020-02-02 20:20] VITALS: PULSE 87; RESP 16; O2SAT 100
[2020-02-02 22:00] VITALS: BP 147/67; PULSE 87; RESP 16; TEMP 36.7; O2SAT 100
[2020-02-02] MEDS: oxyCODONE/ACETAMINOPHEN (*CRX) 5-325 MG TABLET 1 TABLET PO (22:52)
[2020-02-03] MEDS: HYDROcodone/acetaminophen (*CRX) 10-325 MG TABLET 1 TAB PO ×2 (05:05→17:51)
[2020-02-03 06:00] VITALS: BP 139/67; PULSE 92; RESP 18; TEMP 36.2; O2SAT 99
[2020-02-03 10:30] VITALS: PULSE 92
[2020-02-03] MEDS: CEPHALEXIN 500 MG CAPSULE PO (10:30)
[2020-02-03] MEDS: DOCUSATE SODIUM 100 MG CAPSULE PO (10:30)
[2020-02-03] MEDS: METOPROLOL SUCCINATE EXT REL 25 MG TABCR PO (10:30)
[2020-02-03] MEDS: POTASSIUM CHLORIDE 10 MEQ TABLET.ER PO ×2 (10:32→17:51)
[2020-02-03 14:00] VITALS: BP 140/67; PULSE 80; RESP 16; TEMP 36.3; O2SAT 100
[2020-02-03] MEDS: oxyCODONE/ACETAMINOPHEN (*CRX) 5-325 MG TABLET 1 TABLET PO ×2 (14:39→21:41)
[2020-02-03 22:00] VITALS: BP 145/65; PULSE 88; RESP 20; TEMP 36.8; O2SAT 97
[2020-02-04] MEDS: oxyCODONE/ACETAMINOPHEN (*CRX) 5-325 MG TABLET 1 TABLET PO ×3 (02:50→22:25)
[2020-02-04] MEDS: HYDROcodone/acetaminophen (*CRX) 10-325 MG TABLET 1 TAB PO ×2 (05:53→18:23)
[2020-02-04 06:00] VITALS: BP 155/75; PULSE 92; RESP 18; TEMP 36.6; O2SAT 100
[2020-02-04] MEDS: DOCUSATE SODIUM 100 MG CAPSULE PO (09:22)
[2020-02-04] MEDS: CEPHALEXIN 500 MG CAPSULE PO (09:22)
[2020-02-04 09:23] VITALS: PULSE 92
[2020-02-04] MEDS: POTASSIUM CHLORIDE 10 MEQ TABLET.ER PO ×2 (09:23→17:30)
[2020-02-04] MEDS: METOPROLOL SUCCINATE EXT REL 25 MG TABCR PO (09:23)
[2020-02-04] MEDS: TOLNAFTATE 1% POWDER 45 GM BTL 1 APPLIC TOPICAL ×2 (09:23→20:15)
[2020-02-04 11:00] VITALS: O2SAT 83
[2020-02-04 14:00] VITALS: BP 150/65; PULSE 88; RESP 20; TEMP 36.4; O2SAT 100
[2020-02-04 22:00] VITALS: BP 147/58; PULSE 86; RESP 20; TEMP 36.6; O2SAT 99
[2020-02-05] MEDS: oxyCODONE/ACETAMINOPHEN (*CRX) 5-325 MG TABLET 1 TABLET PO ×3 (01:53→22:37)
[2020-02-05] MEDS: HYDROcodone/acetaminophen (*CRX) 10-325 MG TABLET 1 TAB PO ×2 (05:36→17:06)
[2020-02-05 06:00] VITALS: BP 149/61; PULSE 90; RESP 18; TEMP 36.4; O2SAT 100
[2020-02-05 08:38] VITALS: PULSE 90
[2020-02-05] MEDS: CEPHALEXIN 500 MG CAPSULE PO (08:38)
[2020-02-05] MEDS: METOPROLOL SUCCINATE EXT REL 25 MG TABCR PO (08:38)
[2020-02-05] MEDS: POTASSIUM CHLORIDE 10 MEQ TABLET.ER PO ×2 (08:38→17:06)
[2020-02-05] MEDS: DOCUSATE SODIUM 100 MG CAPSULE PO (08:38)
[2020-02-05] MEDS: TOLNAFTATE 1% POWDER 45 GM BTL 1 APPLIC TOPICAL ×2 (09:40→20:53)
--- NOTE | 2020-02-05 09:48 | WPDNEURORHBP ---
Subjective Date/time seen: 02/05/20 09:48 84 years old with diagnosis of displaced fracture of the right superior inferior pubic rami and minimal displacement has been involved in the physical therapy and occupational therapy has no acute problems but generally she has not communicative but follows all the instruction accordingly and able to express herself without any problem Review of Systems Review of Systems: All systems reviewed & are unremarkable except as noted in HPI and below Functional Status Ambulation Ability Ambulation Assistive Devices: Walker, Wheeled Transfers Ability Ability to Transfer In/Out of Chair: Moderate Assistance X 1 Exam Narrative: Exam Narrative: on examination she is awake alert cooperative his speech is slow of low volume but no dysphasic not dysarthric neck is supple regular lungs clear neuro unchanged Objective Data Vital Signs Vital Signs: Vital Signs - 24 hr 02/04/20 11:00 02/04/20 14:00 02/04/20 22:00 Temperature 36.4 C L 36.6 C Pulse Rate 88 86 Respiratory Rate 20 20 Blood Pressure 150/65 H 147/58 H Pulse Oximetry 83 L 100 99 02/05/20 06:00 02/05/20 08:38 Temperature 36.4 C Pulse Rate 90 90 Respiratory Rate 18 Blood Pressure 149/61 H Pulse Oximetry 100 Intake/Output Intake/Output: Intake & Output 02/02/20 02/03/20 02/04/20 02/05/20 23:59 23:59 23:59 23:59 Intake Total 200 960 780 240 Balance 200 960 780 240 Meds/Results Medications: Active Medications Generic Name Dose Route Start Last Admin Trade Name Freq PRN Reason Stop Dose Admin Acetaminophen 650 mg 01/25/20 13:23 02/01/20 23:21 Acetaminophen 325 Mg Tablet PO 650 mg Q6H PRN Administration Pain (Scale Score 1-3) Hydrocodone Bitart/Acetaminophen 1 tab 01/30/20 18:00 02/05/20 05:36 Hydrocodone/Acetaminophen (*Crx) 10-325 Mg Tablet PO 1 tab Q12H CHELO Administration Cephalexin HCl 500 mg 01/26/20 09:00 02/05/20 08:38 Cephalexin 500 Mg Capsule PO 03/06/20 09:01 500 mg DAILY CHELO Administration Clonidine HCl 0.1 mg 01/25/20 15:48 Clonidine Hcl 0.1 Mg Tablet PO Q6H PRN Blood Pressure - High Docusate Sodium 100 mg 01/26/20 09:00 02/05/20 08:38 Docusate Sodium 100 Mg Capsule PO 100 mg DAILY CHELO Administration Melatonin 5 mg 01/25/20 13:12 Melatonin 5 Mg Tablet PO HS PRN Insomnia Metoprolol Succinate 25 mg 01/26/20 09:00 02/05/20 08:38 Metoprolol Succinate Ext Rel 25 Mg Tabcr PO 25 mg DAILY CHELO Administration Oxycodone/Acetaminophen 1 tablet 01/25/20 13:12 02/05/20 01:53 Oxycodone/Acetaminophen (*Crx) 5-325 Mg Tablet PO 1 tablet Q4H PRN Administration Pain (Scale Score 7-10) Polyethylene Glycol 17 gm 01/29/20 11:02 01/29/20 11:21 Polyethylene Glycol 3350 17 Gm Powd.Pack PO 17 gm DAILY PRN Administration Constipation Potassium Chloride 10 meq 01/25/20 17:00 02/05/20 08:38 Potassium Chloride 10 Meq Tablet.Er PO 10 meq BID CHELO Administration Tolnaftate 1 applic 02/04/20 09:00 02/05/20 09:40 Tolnaftate 1% Powder 45 Gm Btl TOPICAL 1 applic Q12HR CHELO Administration Progress Note: A&P Assessment and Plan (1) Bilateral pubic rami fractures: Code(s): S32.591A - Other specified fracture of right pubis, initial encounter for closed fracture; S32.592A - Other specified fracture of left pubis, initial encounter for closed fracture Status: Acute Additional Plan stable will continue the treatment as such
--- NOTE | 2020-02-05 12:42 | PCDIET ---
Nutrition Follow-Up Complete: Nutrition Diagnosis: Suboptimal oral intake related to decreased appetite as evidenced by patient statements, meal intake of 5%. Nutrition Goal: Patient to consume 75% of meals and/or supplements or greater Goal not met. Patient continues to consume less than 50% of most meals, but continues to take Ensure Clear TID. Recommend continuing regular diet with Ensure Clear TID. If medically appropriate, patient may also benefit from appetite stimulant. Last recorded weight is 47.7 kg. Recommend obtaining new weight. Bowel Motility: Last BM on 02/02/20, per nursing flowsheet. Labs Reviewed: Hgb (10.2), Hct (32.0), Glu (112), BUN (54), Cr (2.0), Cl (117) Meds Noted: [place], Keflex, Colace, Toprol XL, KCl Additional Notes: Left hand skin tear documented. Will continue to monitor with same goal. Nutrition Monitoring and Evaluation: Follow up in 5 days.
[2020-02-05 14:00] VITALS: BP 103/87; PULSE 80; RESP 16; TEMP 36.9; O2SAT 93
[2020-02-05 22:00] VITALS: BP 145/66; PULSE 96; RESP 18; TEMP 37.3; O2SAT 95
[2020-02-06] MEDS: HYDROcodone/acetaminophen (*CRX) 10-325 MG TABLET 1 TAB PO ×2 (05:49→18:47)
[2020-02-06 06:00] VITALS: BP 144/62; PULSE 74; RESP 18; TEMP 36.7; O2SAT 92
--- NOTE | 2020-02-06 09:28 | WPDNEURORHBP ---
Subjective Date/time seen: 02/06/20 09:28 84 years old lady with diagnosis of displaced fracture of the right superior inferior pubic rami with minimal displacement has been involved in physical therapy and occupational therapy case was discussed with the family the meeting she is walking only 2 steps with of old walker easy fatigue. She is able to push the wheelchair for 50ft on discharge on February 07, 2020 she will require the home health physical therapy occupational therapy he continues to be incontinence of bowel and bladder and also receiving Keflex for the chronic UTI Review of Systems Review of Systems: All systems reviewed & are unremarkable except as noted in HPI and below Functional Status Ambulation Ability Ambulation Assistive Devices: Walker, Wheeled Transfers Ability Ability to Transfer In/Out of Chair: Moderate Assistance X 1 Exam Narrative: Exam Narrative: on examination she is awake alert not very verbal and communicative but follows instructions fairly well speech is of low volume not dysphasic not dysarthric heart regular lungs clear abdomen is soft protuberant normal bowel sounds neuro examination revealed her to be awake alert follow the instructions very well speech of low volume not dysphasic not dysarthric not dysphonic pupils round regular vision full extraocular muscle full face symmetrical tongue midline her examination revealed her to be generally weak reflexes sluggish plantars downgoing Objective Data Vital Signs Vital Signs: Vital Signs - 24 hr 02/05/20 14:00 02/05/20 22:00 02/06/20 06:00 Temperature 36.9 C 37.3 C 36.7 C Pulse Rate 80 96 74 Respiratory Rate 16 18 18 Blood Pressure 103/87 145/66 H 144/62 H Pulse Oximetry 93 95 92 Intake/Output Intake/Output: Intake & Output 02/03/20 02/04/20 02/05/20 02/06/20 23:59 23:59 23:59 23:59 Intake Total 960 780 720 330 Balance 960 780 720 330 Meds/Results Medications: Active Medications Generic Name Dose Route Start Last Admin Trade Name Freq PRN Reason Stop Dose Admin Acetaminophen 650 mg 01/25/20 13:23 02/01/20 23:21 Acetaminophen 325 Mg Tablet PO 650 mg Q6H PRN Administration Pain (Scale Score 1-3) Hydrocodone Bitart/Acetaminophen 1 tab 01/30/20 18:00 02/06/20 05:49 Hydrocodone/Acetaminophen (*Crx) 10-325 Mg Tablet PO 1 tab Q12H CHELO Administration Al Hydrox/Mg Hydrox/Simethicone 30 ml 02/05/20 10:49 Mag Hydrox/Al Hydrox/Simeth 30 Ml Udc PO Q6H PRN Indigestion Cephalexin HCl 500 mg 01/26/20 09:00 02/05/20 08:38 Cephalexin 500 Mg Capsule PO 03/06/20 09:01 500 mg DAILY CHELO Administration Clonidine HCl 0.1 mg 01/25/20 15:48 Clonidine Hcl 0.1 Mg Tablet PO Q6H PRN Blood Pressure - High Docusate Sodium 100 mg 01/26/20 09:00 02/05/20 08:38 Docusate Sodium 100 Mg Capsule PO 100 mg DAILY CHELO Administration Melatonin 5 mg 01/25/20 13:12 Melatonin 5 Mg Tablet PO HS PRN Insomnia Metoprolol Succinate 25 mg 01/26/20 09:00 02/05/20 08:38 Metoprolol Succinate Ext Rel 25 Mg Tabcr PO 25 mg DAILY CHELO Administration Ondansetron HCl 4 mg 02/05/20 12:19 Ondansetron Hcl Odt 4 Mg Tablet PO Q4HR PRN Nausea And Vomiting Oxycodone/Acetaminophen 1 tablet 01/25/20 13:12 02/05/20 22:37 Oxycodone/Acetaminophen (*Crx) 5-325 Mg Tablet PO 1 tablet Q4H PRN Administration Pain (Scale Score 7-10) Polyethylene Glycol 17 gm 01/29/20 11:02 01/29/20 11:21 Polyethylene Glycol 3350 17 Gm Powd.Pack PO 17 gm DAILY PRN Administration Constipation Potassium Chloride 10 meq 01/25/20 17:00 02/05/20 17:06 Potassium Chloride 10 Meq Tablet.Er PO 10 meq BID CHELO Administration Tolnaftate 1 applic 02/04/20 09:00 02/05/20 20:53 Tolnaftate 1% Powder 45 Gm Btl TOPICAL 1 applic Q12HR CHEOL Administration Progress Note: A&P Assessment and Plan (1) Bilateral pubic rami fractures: Code(s):
[2020-02-06 10:12] VITALS: PULSE 74
[2020-02-06] MEDS: CEPHALEXIN 500 MG CAPSULE PO (10:12)
[2020-02-06] MEDS: METOPROLOL SUCCINATE EXT REL 25 MG TABCR PO (10:12)
[2020-02-06] MEDS: DOCUSATE SODIUM 100 MG CAPSULE PO (10:12)
[2020-02-06] MEDS: POTASSIUM CHLORIDE 10 MEQ TABLET.ER PO ×2 (10:12→16:30)
[2020-02-06] MEDS: TOLNAFTATE 1% POWDER 45 GM BTL 1 APPLIC TOPICAL ×2 (10:13→20:59)
[2020-02-06 14:00] VITALS: BP 146/68; PULSE 84; RESP 18; TEMP 36.2; O2SAT 95
[2020-02-06] MEDS: oxyCODONE/ACETAMINOPHEN (*CRX) 5-325 MG TABLET 1 TABLET PO (14:20)
[2020-02-06 22:00] VITALS: BP 154/70; PULSE 90; RESP 16; TEMP 36.4; O2SAT 98
[2020-02-06] MEDS: ACETAMINOPHEN 325 MG TABLET 650 MG PO (22:10)
[2020-02-07] MEDS: ONDANSETRON HCL ODT 4 MG TABLET PO (05:32)
[2020-02-07 05:45] VITALS: BP 154/61; PULSE 90; RESP 20; TEMP 36.3; O2SAT 93
[2020-02-07] MEDS: HYDROcodone/acetaminophen (*CRX) 10-325 MG TABLET 1 TAB PO (06:33)
[2020-02-07 08:00] VITALS: PULSE 90; RESP 20; O2SAT 93
[2020-02-07 09:00] VITALS: PULSE 90
[2020-02-07] MEDS: DOCUSATE SODIUM 100 MG CAPSULE PO (09:00)
[2020-02-07] MEDS: METOPROLOL SUCCINATE EXT REL 25 MG TABCR PO (09:00)
[2020-02-07] MEDS: POTASSIUM CHLORIDE 10 MEQ TABLET.ER PO (09:00)
[2020-02-07] MEDS: CEPHALEXIN 500 MG CAPSULE PO (09:00)
[2020-02-07] MEDS: TOLNAFTATE 1% POWDER 45 GM BTL 1 APPLIC TOPICAL (09:01)
--- NOTE | 2020-02-09 14:36 | PM.DS ---
DS: Admitting Diagnosis Admitting Diagnosis Admitting Diagnosis: Pelvic fractures 84 years old right-handed female admitted to the acute rehab with mildly displaced fracture of the right superior and inferior pubic rami and minimally displaced left superior pubic ramus fracture in addition to the comorbid conditions of 1. Coronary artery disease with history of CABG 2. Frequent UTI 3. CVA in 2018 4. Chronic kidney disease and 5. Osteoarthritis. During the hospitalization she was actively involved in the physical therapy and occupational therapy. She was maintained on the antibiotic treatment for the chronic UTI and was also discharged on that. She had no radiological investigation during this hospitalization but her lab revealed leukocytosis which was gradually coming down hemoglobin of 10.2 is stable around this number platelet count 401 electrolytes with normal sodium but chloride 117 BUN 54 creatinine 2.0 and GFR only 24 ADMISSION FUNCTION: Eating independent Oral Care supervision Toileting Hygiene dependent Shower/Bathing substantial Upper Body Dressing partial assistance Lower Body Dressing substantial Donning/[place] Footwear dependent Rolling Left and Right partial assistance Sit to Lying partial assist Lying to Sitting partial tax accounting assistant Sit to Stand partial tax accounting assistant Bed to Chair Transfers partial assistance Toilet Transfers substantial Car Transfers stand shall Walking 10' unable Walking 50' with Two Turns unable Walking 150' unable Curb or Step unable 4 Steps unable 12 Steps unable Pick [Wheelchair Mobility 50'] partial assisted [[place] GOALS: Eating [INDEPENDENT] Oral Care [INDEPENDENT] Toileting Hygiene [INDEPENDENT] Shower/Bathing supervision Upper Body Dressing [INDEPENDENT] Lower Body Dressing supervising Don[place] Footwear supervision Rolling Left and Right [INDEPENDENT] Sit to Lying [INDEPENDENT] Lying to Sitting [INDEPENDENT] Sit to Stand supervision Bed to Chair Transfers supervision Toilet Transfers supervision Car Transfers supervision Walking 10' supervision Walking 50' with Two Turns supervision Walking 150' not applicable Curb or Step partial tax accounting assistant 4 Steps partial assist 12 Steps not applicable Picking Up Object supervision [Wheelchair Mobility 50'] supervision [Wheelchair Mobility 150'] not DISCHARGE PERFORMANCE: Eating [INDEPENDENT] Oral Care [INDEPENDENT] Toileting Hygiene dependent Shower/Bathing partial assisted Upper Body Dressing supervision Lower Body Dressing substantial Donning/[place] Footwear supervision Sit to Lying partial assistance Lying to Sitting supervision Sit to Stand partial assisted Bed to Chair Transfers partial tax accounting assistant Toilet Transfers substantial Car Transfers partial assistance Walking 10' unable Walking 50' with Two Turns unable Walking 150' unable Curb or Step unable 4 Steps unable unable[INDEPENDENT] Picking Up Object partial assist [Wheelchair Mobility 50'] partial assisted [Wheelchair Mobility 150'] unable during the entire hospitalization patient had no falls, no injuries, she was discharged her home with home health instructions, and her condition generally improved and was stable The patient had [no falls]. DS: Summary Time Spent with Patient Time attestation: Total time spent providing and/or coordinating discharge services: Discharge Plan Discharge Patient Disposition: Home Health Service Activity: no driving and as tolerated Diet: regular Discharge Instructions: Per Care Coordination: Home Health services have been arranged through [employer]. [facility] can be contacted at [phone]. [facility] at [phone] Patient Instructions: Antibiotic Form, Pain Management in Older Adults (DC), Pelvic Fracture (DC) Stand Alone Forms: General Discharge Information Follow-up/Referrals: Primary medical [Other] (follow u
== END 2020-02-07 13:30 | disposition home health service (06) | DRG 560 ==
PROVIDERS: Admitting Provider Psychiatry & Neurology Neurology; PCP Family Medicine; Visit Provider Psychiatry & Neurology Neurology
DX: S32.591D Other specified fracture of right pubis, subsequent encounter for fracture with routine healing (principal); N39.0 Urinary tract infection, site not specified; S32.512D Fracture of superior rim of left pubis, subsequent encounter for fracture with routine healing; B96.89 Other specified bacterial agents as the cause of diseases classified elsewhere; D72.829 Elevated white blood cell count, unspecified; E83.52 Hypercalcemia; I12.9 Hypertensive chronic kidney disease with stage 1 through stage 4 chronic kidney disease, or unspecified chronic kidney disease; I25.10 Atherosclerotic heart disease of native coronary artery without angina pectoris; M19.032 Primary osteoarthritis, left wrist; N18.9 Chronic kidney disease, unspecified; Z95.1 Presence of aortocoronary bypass graft; Z86.73 Personal history of transient ischemic attack (TIA), and cerebral infarction without residual deficits; W19.XXXD Unspecified fall, subsequent encounter
CPT/HCPCS: 36415; 80048; 85025; 97110; 97116; 97140; 97161; 97165; 97530; 97535; 97542; A9270